=== PATIENT | male | born 1950 | race Caucasian/White ===

== ENCOUNTER 2017-10-03 12:35 | Emergency (ER) | payer OTHER ==
[~2017-10-03] VITALS: Ht 190.5 cm; Wt 86.8 kg
[~2017-10-03 12:35] MED LIST: ASPI-515 PO; ATOR20TA9 PO; HYDR50CA PO; LORA-446 PO; MAGN64TA9 PO; METO25TA91 PO; NAPR-856 PO; TRAZ100T15 PO
[2017-10-03 12:47] VITALS: BP 166/83
== END 2017-10-03 13:34 | disposition home or self-care (01) ==
LOC: ED 13:28
DX: S40.862A Insect bite (nonvenomous) of left upper arm, initial encounter (principal); S40.861A Insect bite (nonvenomous) of right upper arm, initial encounter; W57.XXXA Bitten or stung by nonvenomous insect and other nonvenomous arthropods, initial encounter; Y93.89 Activity, other specified; Y92.89 Other specified places as the place of occurrence of the external cause; Y99.8 Other external cause status
CPT/HCPCS: 99281

== ENCOUNTER 2017-10-08 09:18 | Emergency (ER) | payer OTHER ==
[~2017-10-08] VITALS: Ht 190.5 cm; Wt 84.7 kg
[2017-10-08] MEDS ORDERED: METOPROLOL TARTRATE 50 MG TABLET PO ONE (10:00)
[2017-10-08 10:12] LABS: BASOPHILS # (AUTO) 0.04 x10^3/uL (0-0.1); BASOPHILS % (AUTO) 1 % (0-1); EOSINOPHILS # (AUTO) 0.02 x10^3/uL (0-0.4); EOSINOPHILS % (AUTO) 0 % (1-7); LYMPHOCYTES # (AUTO) 1.39 x10^3/uL (1-3.4); LYMPHOCYTES % (AUTO) 14 % (22-44); MD NO; MEAN CORPUSCULAR HEMOGLOBIN 30.5 pg (27.5-34.5); MEAN CORPUSCULAR VOLUME 89.8 fL (81-97); MEAN PLATELET VOLUME 8.8 fL (7.4-10.4); MONOCYTES # (AUTO) 0.44 x10^3/uL (0.2-0.8); MONOCYTES % (AUTO) 5 % (2-9); NEUTROPHILS # (AUTO) 7.97 x10^3/uL (1.8-6.8); NEUTROPHILS % (AUTO) 81 % (42-75); PLATELET COUNT 143 x10^3/uL (130-400); RED BLOOD COUNT 5.62 x10^6/uL (4.38-5.82); RED CELL DISTRIBUTION WIDTH 14.1 % (9.4-14.8)
[2017-10-08 10:28] LABS: ALANINE AMINOTRANSFERASE 15 U/L (12-78); ALBUMIN 4.4 g/dL (3.4-5.0); ANION GAP 10 mmol/L (5-15); CHLORIDE 102 mmol/L (98-107); CREATININE 1.15 mg/dL (0.7-1.3); TROPONIN I < 0.015 ng/mL (0.000-0.045)
[2017-10-08 10:31] LABS: ACETAMINOPHEN < 2 mcg/mL (10-30); ALKALINE PHOSPHATASE 86 U/L (45-117); BILIRUBIN,TOTAL 1.1 mg/dL (0.2-1.0); SALICYLATE LEVEL 5.8 mg/dL (2.8-20.0)
[2017-10-08] MEDS ORDERED: METOPROLOL TARTRATE 50 MG TABLET ONE (10:32)
[2017-10-08] MEDS ORDERED: IBUPROFEN 200 MG TABLET ONE (10:50)
[2017-10-08 10:55] LABS: AMPHETAMINE SCREEN, URINE Negative (Negative); BARBITURATE SCREEN, URINE Negative (Negative); BENZODIAZEPINE SCREEN, URINE Negative (Negative); CANNABINOID SCREEN, URINE Positive (Negative); COCAINE SCREEN, URINE Negative (Negative); METHADONE SCREEN, URINE Negative (Negative); OPIATE SCREEN, URINE Negative (Negative)
[2017-10-08] MEDS ORDERED: IBUPROFEN 200 MG TABLET PO ONE (11:00)
[2017-10-08] MEDS ORDERED: ZIPRASIDONE 20 MG INJ IM ONE ×4 (13:30→21:00)
[2017-10-09] MEDS ORDERED: ACETAMINOPHEN 325 MG TABLET ONE (12:11)
[2017-10-09] MEDS ORDERED: ACETAMINOPHEN 325 MG TABLET PO ONE (12:30)
[2017-10-09] MEDS ORDERED: ASPIRIN 81 MG TABLET CHEW ONE (21:32)
[2017-10-10] MEDS ORDERED: ASPIRIN 81 MG TABLET CHEW PO SCH (09:00)
[2017-10-10 10:50] VITALS: BP 150/78
== END 2017-10-10 11:49 ==
LOC: ED 10:52 → EDIP 12:55 → UNDOADMOB 12:55 → ED 10-10 11:49
DX: R45.851 Suicidal ideations (principal); F32.9 Major depressive disorder, single episode, unspecified; Z95.0 Presence of cardiac pacemaker; Z90.89 Acquired absence of other organs
CPT/HCPCS: 36415; 71045; 80053; 80307; 80329; 84484; 85025; 93005; 96372; 99285; J3486; G0480